=== PATIENT | female | born 1950 | race Caucasian/White ===

== ENCOUNTER 2018-10-04 17:56 | Observation (INO) ==
[2018-10-04] MEDS ORDERED: IOPAMIDOL 100 ML BOTTLE IV ONE (17:57)
--- NOTE | 2018-10-04 18:05 | Emergency Department Note ---
Neuro HPI - General Chief Complaint: Neuro Symptoms/Deficit Stated Complaint: neuro symptoms Time Seen by Provider: 10/04/18 18:03 Source: patient Mode of arrival: ambulatory Limitations: no limitations - History of Present Illness HPI Narrative: This patient began to have numbness to left side of her body 1/2-hour ago and also fairly marked left leg weakness and difficulty walking. Has not noticed much arm weakness. No change in speech or mentation no headache. No history of previous stroke no history of cardiopulmonary disease. - Related Data Home Medications: Home Medications Medication Instructions Recorded Confirmed Acetaminophen [Shake That Ache] 500 mg PO BIDP PRN 10/04/18 10/05/18 Ibuprofen [I-Prin] 400 mg PO BIDP PRN 10/04/18 10/05/18 Allergies/Adverse Reactions: Allergies Allergy/AdvReac Type Severity Reaction Status Date / Time No Known Drug Allergies Allergy Verified 10/05/18 01:24 Review of Systems All systems ED: reviewed and negative except as stated. Past Medical History - Past Medical History Medical history: Reports: no medical history - Social History smoking status: Never smoker Physical Exam Limitations: no limitations General appearance: alert Head: atraumatic Eye: Present: normal appearance ENT: normal exam Neck: Present: normal inspection Chest: Present: normal inspection Respiratory: Present: normal lung sounds bilaterally Cardiovascular: Present: regular rate, normal rhythm, normal heart sounds Abdominal: Present: soft. Absent: distention, tenderness Neurological: Present: alert Cranial nerves: facial sensation (V): Abnormal Left, facial palsy (VII): Normal Motor strength - LUE: 4/5 Motor strength - RUE: 5/5 Motor strength - LLE: 3/5 Motor strength - RLE: 5/5 Psychiatric: Present: normal affect Skin: Present: warm, dry Course Vital Signs Temperature 97.7 F 10/04/18 17:57 Pulse Rate 101 H 10/04/18 17:57 Respiratory Rate 18 10/04/18 17:57 Blood Pressure 175/98 10/04/18 17:57 Pulse Oximetry (%) 94 10/04/18 17:57 Temperature 98.6 F 10/05/18 03:29 Pulse Rate 81 10/05/18 03:29 Respiratory Rate 16 10/05/18 03:29 Blood Pressure 113/64 10/05/18 03:29 Pulse Oximetry (%) 95 10/05/18 03:29 Neuro Symptoms/Deficit - MDM Narrative Medical decision making narrative: This patient was evaluated by the stroke neurologist from [place] and felt that TPA was not indicated as she was improving. Her blood sugar also was 454. We did CT the 80s of head and neck and they were unremarkable as well as a normal CT of the brain. Patient will be admitted to the hospital for further TIA workup with Dr. Mead. - Lab Data Lab results reviewed: Yes I reviewed the patient's lab results. Result diagrams: 10/04/18 18:20 10/05/18 03:50 Lab Results 10/04/18 10/04/18 10/04/18 Range/Units 18:19 18:19 18:20 WBC 7.2 (4.5-11.0) K/mcL RBC 5.02 (4.00-5.20) M/mcL Hgb 14.1 (12.0-15.0) g/dL Hct 42.2 (36.0-48.0) % POC Hct 43.0 (36.0-48.0) % MCV 84.1 (80.0-100.0) fL MCH 28.1 (26.0-34.0) pg MCHC 33.4 (31.0-36.0) g/dL RDW 14.3 (11.5-14.5) % Plt Count 251 (140-440) K/mcL MPV 9.8 (7.4-10.4) fL Gran % 75.4 (38.0-78.0) % Lymph % (Auto) 18.0 (15.5-49.0) % [place] % (Auto) 5.1 (1.0-12.0) % Eos % (Auto) 1.1 (0.0-7.0) % Baso % (Auto) 0.4 (0.0-2.0) % Gran # 5.4 (1.8-8.0) K/mcL Lymph # (Auto) 1.3 L (1.5-4.8) K/mcL [place] # (Auto) 0.4 (0.1-0.9) K/mcL Eos # (Auto) 0.1 (0.0-0.7) K/mcL Baso # (Auto) 0 (0.0-0.3) K/mcL POC PT (11.9-14.5) sec POC INR (0.9-1.2) APTT (20-37) sec POC Sodium 136 (133-145) mmol/L Sodium 133 (133-145) mmol/L POC Potassium 3.9 (3.3-5.1) mmol/L Potassium 3.9 (3.3-5.1) mmol/L POC Chloride 99 (96-108) mmol/L Chloride 98 (96-108) mmol/L Carbon Dioxide 22 (22-30) mmol/L POC Total CO2 23 (22-30) mmol/L Anion Gap 13.0 (8-16) POC BUN 16 (8-23) mg/dl BUN 15 (8-23) mg/dl Creatinine 1.5 H (0.6-1.1) mg/dl POC Creatinine 1.3 H (0.6-1.1) mg/dl GFR Calculation 36 Glucose 453 H* (70-105) mg/dL POC Glucose 454 H* (70-105) mg/dL Hemoglobin A1c 11.4 H (4.0-6.0) % HGB Estim Average Glucose 280 mg/dL Calcium 9.0 (8.6-10.4) mg/dl POC WB Ioniz Calcium 1.17 (1.16-1.32) mmol/L Total Bilirubin 0.4 (0.0-1.0) mg/dL AST 14 (0-37) U/l ALT 10 (0-40) U/l Alkaline Phosphatase 109 (39-117) U/L Troponin T (0-0.03) ng/ml Total Protein 7.5 (5.9-8.4) gm/dL Albumin 4.1 (3.2-5.2) gm/dL Globulin 3.4 (2.2-3.7) gm/dL Albumin/Globulin Ratio 1.2 (1.0-2.3) Urine Color Urine Appearance Urine pH (5.0-9.0) Ur Specific [place] (1.000-1.035) Urine Protein (NEG) mg/dL Urine Glucose (UA) (NEG) mg/dL Urine Ketones (NEG) mg/dL Urine Occult Blood (<0.03) mg/dL Urine Nitrate (NEG) Urine Bilirubin (NEG) mg/dL Urine Urobilinogen (NEG) mg/dL Ur Leukocyte Esterase (NEG) /uL Urine RBC (0-1) /hpf Urine WBC (0-4) /hpf Ur Squamous Epith Cells (0-4) /hpf Urine Bacteria (0) /hpf Urine Mucus (0) /hpf Urine Yeast (Budding) (0) /hpf Ur Culture Indicated? 10/04/18 10/04/18 10/04/18 Range/Units 18:20 18:20 21:00 WBC (4.5-11.0) K/mcL RBC (4.00-5.20) M/mcL Hgb (12.0-15.0) g/dL Hct (36.0-48.0) % POC Hct (36.0-48.0) % MCV (80.0-100.0) fL MCH (26.0-34.0) pg MCHC (31.0-36.0) g/dL RDW (11.5-14.5) % Plt Count (140-440) K/mcL MPV (7.4-10.4) fL Gran % (38.0-78.0) % Lymph % (Auto) (15.5-49.0) % [place] % (Auto) (1.0-12.0) % Eos % (Auto) (0.0-7.0) % Baso % (Auto) (0.0-2.0) % Gran # (1.8-8.0) K/mcL Lymph # (Auto) (1.5-4.8) K/mcL [place] # (Auto) (0.1-0.9) K/mcL Eos # (Auto) (0.0-0.7) K/mcL Baso # (Auto) (0.0-0.3) K/mcL POC PT 11.6 L (11.9-14.5) sec POC INR 1.0 (0.9-1.2) APTT 30 (20-37) sec POC Sodium (133-145) mmol/L Sodium (133-145) mmol/L POC Potassium (3.3-5.1) mmol/L Potassium (3.3-5.1) mmol/L POC Chloride (96-108) mmol/L Chloride (96-108) mmol/L Carbon Dioxide (22-30) mmol/L POC Total CO2 (22-30) mmol/L Anion Gap (8-16) POC BUN (8-23) mg/dl BUN (8-23) mg/dl Creatinine (0.6-1.1) mg/dl POC Creatinine (0.6-1.1) mg/dl GFR Calculation Glucose (70-105) mg/dL POC Glucose (70-105) mg/dL Hemoglobin A1c (4.0-6.0) % HGB Estim Average Glucose mg/dL Calcium (8.6-10.4) mg/dl POC WB Ioniz Calcium (1.16-1.32) mmol/L Total Bilirubin (0.0-1.0) mg/dL AST (0-37) U/l ALT (0-40) U/l Alkaline Phosphatase (39-117) U/L Troponin T < 0.01 (0-0.03) ng/ml Total Protein (5.9-8.4) gm/dL Albumin (3.2-5.2) gm/dL Globulin (2.2-3.7) gm/dL Albumin/Globulin Ratio (1.0-2.3) Urine Color Yellow Urine Appearance Clear Urine pH 5.0 (5.0-9.0) Ur Specific [place] 1.036 H (1.000-1.035) Urine Protein Neg (NEG) mg/dL Urine Glucose (UA) >=500 A (NEG) mg/dL Urine Ketones Neg (NEG) mg/dL Urine Occult Blood 0.03 A (<0.03) mg/dL Urine Nitrate Pos A (NEG) Urine Bilirubin Neg (NEG) mg/dL Urine Urobilinogen Neg (NEG) mg/dL Ur Leukocyte Esterase 25 A (NEG) /uL Urine RBC 2 H (0-1) /hpf Urine WBC 15 H (0-4) /hpf Ur Squamous Epith Cells 1 (0-4) /hpf Urine Bacteria 0 (0) /hpf Urine Mucus Few (0) /hpf Urine Yeast (Budding) Few A (0) /hpf Ur Culture Indicated? Yes - Radiology Data Radiology results reviewed: Yes I reviewed the patient's radiology results. Disposition Pt seen by SENIOR SYSTEMS ANALYST/PA only: No Clinical Impression: Transient cerebral ischemia Disposition: Xfer As Inpt ([facility]) Condition: Good
--- NOTE | 2018-10-04 18:16 | Cat Scan Report ---
CLINICAL INFORMATION: Code stroke COMPARISON: None. TECHNIQUE: Axial noncontrast-enhanced images through the brain. FINDINGS: No acute intracranial hemorrhage. No focal intra-axial attenuation abnormality. No localized mass effect. No midline shift. Brain volume is normal for age. No hydrocephalus. Incidental note is made of calcification within both basal ganglia. This is probably physiologic. Brainstem and cerebellum are negative. No subarachnoid hemorrhage. No subdural hematoma. Basilar cisterns are normal. No hyperdense middle cerebral artery sign. No calvarial fracture. No lytic lesion. Temporal bones are negative. IMPRESSION: Negative noncontrast enhanced brain CT scan The exam was performed using radiation dose optimization techniques including, but not limited to, automated exposure control, adjustment of the mA and/or kV according to patient size and use of iterative reconstruction technique. Interpreted and Authenticated by: Bryce 10/04/18
[2018-10-04] MEDS ORDERED: INSULIN REGULAR, HUMAN 1 UNIT/0.01 ML UNIT IV ONE (18:37)
[2018-10-04] MEDS ORDERED: 0.9 % SODIUM CHLORIDE 1,000 ML IV ONE (19:02)
[2018-10-04 19:36] LABS: Basophils # (Auto) 0 K/mcL (0.0-0.3); Basophils % (Auto) 0.4 % (0.0-2.0); Eosinophils # (Auto) 0.1 K/mcL (0.0-0.7); Eosinophils % (Auto) 1.1 % (0.0-7.0); Granulocytes % (Auto) 75.4 % (38.0-78.0); Lymphocytes # (Auto) 1.3 K/mcL (1.5-4.8); Mean Cell Volume 84.1 fL (80.0-100.0); Mean Corpuscular HGB Conc 33.4 g/dL (31.0-36.0); Mean Corpuscular Hemoglobin 28.1 pg (26.0-34.0); Monocytes # (Auto) 0.4 K/mcL (0.1-0.9); Monocytes % (Auto) 5.1 % (1.0-12.0); Platelet Count 251 K/mcL (140-440); RBC 5.02 M/mcL (4.00-5.20); Red Cell Distribution Width 14.3 % (11.5-14.5)
--- NOTE | 2018-10-04 19:53 | Internal Med History&Physical ---
Medical - H&P: HPI Patient information: Note initiated : 10/04/18 at 7:46 pm Service Date, if different from initiated Date: [] Patient: Lisa Camarillo a 68 y/o F admitted on for neuro symptoms. Chief Complaint: [] History of present illness: Ms. aCmarillo is a 68 year old F who presents with Left side face arm and leg numbness as well as left leg weakness. She reports she was in the kitchen when she suddenly developed left facial numbness along with left arm and leg numbness she felt like she was weak on the left side as well and was unstable and had us sit down before she felt like she would fall. She first took some ibuprofen. Then eventually called EMS if symptoms do not improve. Brought to the ER. Symptoms lasted she says maybe 3 hours,at least 2 before resolving. She has never had any similar presentation. She is a diabetic diet controlled. She is not been on any medications for a year because she is been away from her primary care doctor for a year, she has been working in [place]. She was on metformin for diabetes and does not check her blood sugars. She is found to have blood glucose of 450 when she arrived. CTA head neck was unrevealing for infarct and showed no carotid artery stenosis. EKG with normal sinus rhythm No recent illnesses, no chest pain headaches, or speech disturbances. Telemetry stroke was initiated in the ED no TPA given. Review of Systems: Pertinent positives as above . denies headache/fever/chills/nausea/vomiting/ chest or abdominal pain/cough/dyspnea/diarrhea. Remaining 10 point review of systems reviewed negative Medical - H&P: PMH Medical history: Past medical history: Diabetes now diet controlled she has not taken metformin for years since she has been out of town for a year and has not seen her primary care doctor past surgical history: Tonsillectomy Family history: Mother had breast cancer and heart disease Father chronic kidney disease Social History Denies tobacco or alcohol lives at home with family Medical - H&P: Meds Home Medications Medication Instructions Recorded Confirmed Type No Known Home Meds 10/04/18 10/04/18 History Allergies Allergy/AdvReac Type Severity Reaction Status Date / Time No Known Drug Allergies Allergy Verified 10/04/18 18:01 Medical - H&P: Exam - Constitutional Vitals: Temp Pulse Resp BP Pulse Ox 97.7 F 85 20 145/95 96 12/19/18 17:57 10/04/18 19:35 10/04/18 19:35 10/04/18 19:01 10/04/18 19:35 Exam: General: Alert, Awake, No acute Distress Eyes/N/T: EOMI, PEERL, DMM Head/Neck: neck supple, normocephalic atraumatic CV: RRR, No murmurs, normal s1/s2 Pulm: Clear b/l, no wheezing/rhonchi/rales Abd: soft, nontender, +BS x4 Ext: no clubbing/cyanosis/edema Neuro: Alert, no focal deficits, moves all extremities, CN 2-12 grossly intact, guidance consultant strength appears to be symmetrical at this time and difficult to appreciate weakness in the left leg compared to the right. sensations intact b/ l upper/lower. Facial symmetry, no pronator drift, clear speech, Skin: warm/dry Medical - H&P: Reslt - Labs CBC & Chem 7: 10/04/18 18:20 10/04/18 18:19 Labs: Short CBC 10/04/18 Range/Units 18:20 WBC 7.2 (4.5-11.0) K/mcL Hgb 14.1 (12.0-15.0) g/dL Hct 42.2 (36.0-48.0) % Plt Count 251 (140-440) K/mcL - Impressions CTA head and neck unrevealing for acute infarct and carotid arteries bilaterally without stenosis EKG with normal sinus rhythm Medical - H&P: A/P - Narrative A/P Narrative: A: *TIA/ -ABCD=7 -CTA head/neck *Diabetes uncontrolled: 2/2 Medication noncompliance, used to take metformin and tries to adhere to ADA diet. *MANE vs CKD III(unknown baseline) * P: -Aspirin/statin -Allow permissive hypertension first 24 hours -Neuro checks every 4 -Lipid panel pending -Echo/MRI pending -SSI and basal -A1c -depending on renal fxn and a1c will determine whether she is sent home on metformin vs other oral hypoglycemic or insulin -ppx: Lovenox
[2018-10-04 20:01] LABS: ALT/SGPT 10 U/l (0-40); Albumin 4.1 gm/dL (3.2-5.2); Albumin/Globulin Ratio 1.2 (1.0-2.3); Alkaline Phosphatase 109 U/L (39-117); Blood Urea Nitrogen 15 mg/dl (8-23)
[2018-10-04 21:41] LABS: Appearance,Urine CLEAR; Bacteria,Urine 0 /hpf (0); Bilirubin,Urine NEG (NEG); Color,Urine YELLOW; Glucose,Urine (UA) >=500 mg/dL (NEG); Leukocyte Esterase,Urine 25 /uL (NEG); Mucus,Urine FEW /hpf (0); Protein,Urine NEG (NEG); Specific Gravity,Urine 1.036 (1.000-1.035); Urine Blood 0.03 mg/dL (<0.03); Urine Budding Yeast FEW /hpf (0); Urine RBC 2 /hpf (0-1); Urine Squamous Epithelial Cell 1 /hpf (0-4); Urine WBC 15 /hpf (0-4); Urobilinogen,Urine NEG (NEG)
[2018-10-04] MEDS: 0.9 % SODIUM CHLORIDE 10 ML SYRINGE IV SCH (21:45)
[2018-10-04] MEDS ORDERED: ASPIRIN 325 MG ENTERIC COATED TABLET PO STA (21:47)
[2018-10-04] MEDS ORDERED: BISACODYL 5 MG TABLET PO PRN (21:47)
[2018-10-04] MEDS ORDERED: ACETAMINOPHEN 325 MG TABLET PO PRN ×2 (21:47)
[2018-10-04] MEDS ORDERED: DEXTROSE 50% 50 ML VIAL IV PRN (21:47)
[2018-10-04] MEDS ORDERED: ONDANSETRON 4 MG/2 ML VIAL IV PRN (21:47)
[2018-10-04] MEDS ORDERED: HYDROcodone/APAP 5/325MG TABLET PO PRN (21:47)
[2018-10-04] MEDS ORDERED: DEXTROSE 31 GM ORAL.SUSP PO PRN (21:47)
[2018-10-04] MEDS ORDERED: 0.9 % SODIUM CHLORIDE 1,000 ML IV SCH (21:47)
[2018-10-04] MEDS: INSULIN LISPRO 1 UNIT/0.01 ML UNIT SQ SCH (22:38)
[2018-10-04] MEDS: DOCUSATE SODIUM 100 MG CAPSULE PO SCH (22:38)
[2018-10-04] MEDS: ATORVASTATIN 20 MG TABLET PO SCH (22:38)
[2018-10-04 23:38] LABS: Hemoglobin A1C 11.4 % HGB (4.0-6.0)
[2018-10-05] MEDS ORDERED: cefTRIAXone 1 GM VIAL ONE (02:57)
[2018-10-05] MEDS: cefTRIAXone 1 GM VIAL IV SCH ×2 (03:17→16:10)
--- NOTE | 2018-10-05 05:49 | Cat Scan Report ---
CLINICAL INFORMATION: Facial numbness TECHNIQUE: AML intravenous contrast material injected. Axial images through the brain during arterial phase. Sagittal and coronal reformatted MIP images COMPARISON: Noncontrast enhanced brain CT scan dated 10/04/2018 FINDINGS: Petrous, cavernous, supraclinoid segments of the internal carotid arteries are normal and bilaterally symmetric. There is no stenosis. There is minimal atherosclerotic disease within the cavernous segments of the internal carotid arteries. M1 segments of the middle cerebral arteries and A1 segments of the anterior cerebral arteries are negative. There is no stenosis. Intracranial vertebral arteries and basilar artery are negative. No basilar artery stenosis. T1 segments of posterior cerebral arteries are negative. No intracranial aneurysm. No arteriovenous malformation. There is no detectable branch occlusion. Dural sinuses are patent and normal No temporal bone fracture or destructive mass. There is sclerosis in the left mastoid sinuses consistent with chronic left mastoiditis Examination was initially reviewed by [facility] IMPRESSION: Negative CTA of the [place] Interpreted and Authenticated by: Bryce 10/05/18
[2018-10-05 05:51] LABS: ALT/SGPT 7 U/l (0-40); Albumin 3.3 gm/dL (3.2-5.2); Albumin/Globulin Ratio 1.3 (1.0-2.3); Alkaline Phosphatase 83 U/L (39-117); Bilirubin,Direct < 0.2 mg/dL (0.0-0.3); Blood Urea Nitrogen 15 mg/dl (8-23); Gamma Glutamyl Transpeptidase 17 U/L (5-36); HDL Cholesterol 25 mg/dl (>40); LDL Cholesterol,Calculated 58 mg/dl (SEE CHART); Uric Acid 3.7 mg/dL (2.5-8.0)
--- NOTE | 2018-10-05 05:56 | Cat Scan Report ---
CLINICAL INFORMATION: Facial numbness TECHNIQUE: AML intravenous contrast material injected. Axial images through the neck. Scans performed during arterial phase. MIP sagittal and coronal reformatted images COMPARISON: Brain CT scan dated 10/04/2018 FINDINGS: Aortic arch is negative. No stenosis or dissection. Origins of the left subclavian artery, left common carotid artery, innominate artery, right common carotid artery, right subclavian artery are negative. Origin of the right vertebral artery is normal without stenosis. The left vertebral artery arises directly from the aortic arch. There is no stenosis. Carotid bifurcations are normal. No luminal irregularity. No significant calcified or noncalcified plaque. No ulceration. No stenosis. Cervical portions of the internal carotid arteries are normal. No dissection. No stenosis. Cervical vertebral arteries are negative. There is an 8 mm right upper lobe noncalcified pulmonary parenchymal nodule, image 10/204. Routine noncontrast chest CT scan recommended to evaluate for other nodules and establish follow-up protocol Thyroid gland is enlarged and heterogeneous. There are probable thyroid nodules. Thyroid ultrasound may be helpful to evaluate for dominant nodule. There is no other soft tissue abnormality within the neck. No pathologic adenopathy. No solid or cystic mass. Cervical spine is negative. Others degenerative disc disease. No prevertebral soft tissue swelling Examination was initially interpreted by [facility] IMPRESSION: 1. Negative CTA of the neck 2. Incidental abnormalities as above. 8 mm right upper lobe pulmonary parenchymal nodule. Enlarged heterogeneous thyroid gland. Interpreted and Authenticated by: Bryce 10/05/18
[2018-10-05] MEDS: 0.9 % SODIUM CHLORIDE 10 ML SYRINGE IV SCH ×3 (05:57→21:35)
--- NOTE | 2018-10-05 06:59 | Internal Med Progress Note ---
Medical - PN: Subj Patient information: Note initiated : 10/05/18 at 6:53 am Service Date, if different from initiated Date: [] Patient: Lisa Camarillo a 68 y/o F admitted on 10/04/18 for neuro symptoms. Chief Complaint: [] Interval history: Ms. Camarillo is a 68 year old F who presents with Left side face arm and leg numbness as well as left leg weakness. She reports she was in the kitchen when she suddenly developed left facial numbness along with left arm and leg numbness she felt like she was weak on the left side as well and was unstable and had us sit down before she felt like she would fall. She first took some ibuprofen. Then eventually called EMS if symptoms do not improve. Brought to the ER. Symptoms lasted she says maybe 3 hours,at least 2 before resolving. She has never had any similar presentation. She is a diabetic diet controlled. She is not been on any medications for a year because she is been away from her primary care doctor for a year, she has been working in [place]. She was on metformin for diabetes and does not check her blood sugars. She is found to have blood glucose of 450 when she arrived. CTA head neck was unrevealing for infarct and showed no carotid artery stenosis. EKG with normal sinus rhythm No recent illnesses, no chest pain headaches, or speech disturbances. Telemetry stroke was initiated in the ED no TPA given. 10/05 Supple. Denies numbness or weakness this morning. No overnight events. Review of Systems: denies headache/fever/chills/nausea/vomiting/chest or abdominal pain/cough/ dyspnea/diarrhea. Otherwise see above. - Constitutional Vitals: Vital Signs Temp Pulse Resp BP Pulse Ox 98.6 F 81 16 113/64 95 10/05/18 03:29 10/05/18 03:29 10/05/18 03:29 10/05/18 03:29 10/05/18 03:29 Period Temp Pulse Resp BP Sys/Rose Pulse Ox Last 24 Hr 97.7 F-99.3 F 76-101 12-24 112-175/64-100 94-97 Intake and Output 10/04/18 10/05/18 10/05/18 21:59 05:59 13:59 Intake Total 1000 / 1000 440 / 440 Output Total 400 / 400 Balance 1000 / 1000 40 / 40 Weight 83.007 kg Intake & Output: Intake & Output 10/04/18 10/05/18 10/05/18 21:59 05:59 13:59 Intake Total 1000 / 1000 440 / 440 Output Total 400 / 400 Balance 1000 / 1000 40 / 40 Weight 83.007 kg Intake: IV 1000 / 1000 Sodium Chloride 0.9% 1,000 ml @ 1000 / 1000 Wide Open IV BOLUS ONE Rx#: [id number] Oral 440 / 440 Output: Void Amount 400 / 400 Other: # Voids 1 Exam: General: Alert, Awake, No acute Distress Eyes/N/T: EOMI, Head/Neck: neck supple, CV: RRR, No murmurs, normal s1/s2 Pulm: Clear b/l, no wheezing/rhonchi/rales Abd: soft, nontender, +BS x4 Ext: no clubbing/cyanosis/edema Neuro: Alert, strength appears to be symmetrical upper and lower facial symmetry, no pronator drift, clear speech, Skin: warm/dry Medical - PN: Obj Da - Labs CBC & Chem 7: 10/04/18 18:20 10/05/18 03:50 Labs: Abnormal Lab Results 10/05/18 10/04/18 10/04/18 03:50 21:00 18:20 Lymph # (Auto) POC PT 11.6 L Creatinine POC Creatinine Glucose 247 H POC Glucose Hemoglobin A1c Calcium 8.4 L Triglycerides 292 H HDL Cholesterol 25 L Ur Specific [place] 1.036 H Urine Glucose (UA) >=500 A Urine Occult Blood 0.03 A Urine Nitrate Pos A Ur Leukocyte Esterase 25 A Urine RBC 2 H Urine WBC 15 H Urine Yeast (Budding) Few A 10/04/18 10/04/18 10/04/18 18:20 18:19 18:19 Lymph # (Auto) 1.3 L POC PT Creatinine 1.5 H POC Creatinine 1.3 H Glucose 453 H* POC Glucose 454 H* Hemoglobin A1c 11.4 H Calcium Triglycerides HDL Cholesterol Ur Specific [place] Urine Glucose (UA) Urine Occult Blood Urine Nitrate Ur Leukocyte Esterase Urine RBC Urine WBC Urine Yeast (Budding) Meds: Medications Acetaminophen (Tylenol) 650 mg PO Q6HP PRN PRN Reason: PAIN/FEVER > 101 Hydrocodone Bitart/Acetaminophen (Mouthcard 5/325mg) 1 tab PO Q4HP PRN PRN Reason: PAIN LEVEL 3-6 Aspirin (Aspirin) 81 mg CHEWED DAILY [facility] Atorvastatin Calcium (Lipitor) 80 mg PO HS [facility] Last Admin: 10/04/18 22:38 Dose: 80 mg Bisacodyl (Dulcolax) 10 mg PO DAILYP PRN PRN Reason: Constipation Ceftriaxone Sodium (Rocephin) 1 gm IV Q24H [facility] Last Admin: 10/05/18 03:17 Dose: 1 gm Dextrose (Dextrose 50%) 0 ml IV UD PRN PRN Reason: Hypoglycemia Diagnostic Test (Pha) (Accu-Chek) 1 each FS ACHS [facility] Last Admin: 10/04/18 21:40 Dose: 1 each Docusate Sodium (Colace) 100 mg PO BID [facility] Last Admin: 10/04/18 22:38 Dose: 100 mg Enoxaparin Sodium (Lovenox) 40 mg SQ DAILY [facility] Glucose (Insta-Glucose) 15 gm PO PRN PRN PRN Reason: Hypoglycemia Sodium Chloride (Sodium Chloride 0.9%) 1,000 mls @ 100 mls/hr IV .Q10H [facility] Stop: 10/05/18 07:46 Last Admin: 10/05/18 03:17 Dose: 100 mls/hr Insulin Glargine (Lantus) 10 unit SQ DAILY [facility] Insulin Human Lispro (Humalog) 0 unit SQ ACHS [facility]; Protocol Last Admin: 10/04/18 22:38 Dose: 9 unit Ondansetron HCl (Zofran) 4 mg IV Q4HP PRN PRN Reason: Nausea And Vomiting Sodium Chloride (Saline Flush) 10 ml IV Q8 [facility] Last Admin: 10/05/18 05:57 Dose: Not Given Medical - PN: A/P - Time Spent With Patient Total time spent is greater than 50% in coordination of care (as documented) at patient's floor/unit and/or counseling patient: - Narrative A/P Narrative: A: *TIA vs CVA with left hemiparesthesia resolved and some left hemiparesis: -ABCD=7 -CTA head/neck unremarkable for acute path and no carotid stenosis *Diabetes uncontrolled: 2/2 Medication noncompliance, used to take metformin and tries to adhere to ADA diet. -A1c 11.4 *MANE vs CKD III(unknown baseline): resolved *UTI: P: -Aspirin/statin -Allow permissive hypertension first 24 hours -Neuro checks every 4 -Echo/MRI pending -SSI and basal insulin -home med clarify -restart metformin up d/c and ADA diet with education on d/c, may need insulin, f/u with PCP -Rocephin, pending UC -ppx: Lovenox Medical - PN: Qual - Stroke Onset of Symptoms Time: 16:30 - VTE Deep Vein Thrombosis/Pulmonary Embolism Present on Admission: No
[2018-10-05] MEDS ORDERED: metFORMIN 500 MG TABLET PO SCH (08:00)
[2018-10-05] MEDS ORDERED: INSULIN GLARGINE, HUMAN 1 UNIT/0.01 ML SQ SCH ×2 (09:00)
[2018-10-05] MEDS: ENOXAPARIN 40 MG/0.4 ML SYRINGE SQ SCH (09:15)
[2018-10-05] MEDS: DOCUSATE SODIUM 100 MG CAPSULE PO SCH ×2 (09:15→21:34)
[2018-10-05] MEDS: ASPIRIN 81 MG TAB.CHEW CHEWED SCH (09:16)
[2018-10-05] MEDS: INSULIN LISPRO 1 UNIT/0.01 ML UNIT SQ SCH ×4 (09:16→21:35)
--- NOTE | 2018-10-05 10:11 | Discharge Summary ---
Medical - DS: Prov Patient information: Note initiated : 10/05/18 at 10:09 am Service Date, if different from initiated Date: [] Patient: Lisa Camarillo 68 y/o F admitted on 10/04/18 for neuro symptoms. Chief Complaint: [] Date of admission: 10/04/18 21:32 Discharge date: 10/06/18 Primary care physician: PCP No Consults: 10/04/18 Consult to Physician [CONS] Stat Comment: Consulting Provider: Ravinder Mead Reason For Exam: Physician to Consult Medical - DS: Meds - Discharge Medications Prescriptions: Aspirin 81 mg CHEWED DAILY #30 tab.chew Atorvastatin [Lipitor] 20 mg PO HS #30 tablet Ciprofloxacin HCl [Cipro] 500 mg PO BID #10 tab Insulin Detemir [Levemir Flextouch] 15 unit SQ DAILY #1 insuln.pen Saxagliptin HCl [Onglyza] 5 mg PO DAILY #30 tab Active and Home Medications: Home Medications Acetaminophen [Shake That Ache] 500 mg PO BIDP PRN 10/04/18 [History Confirmed 10/05/18 Last Taken 10/04/18 20:00 1500] Ibuprofen [I-Prin] 400 mg PO BIDP PRN 10/04/18 [History Confirmed 10/05/18 Last Taken 10/04/18 18:30] Medical - DS: Hosp Hospital course: Ms. Camarillo is a 68 year old F who presents with Left side face arm and leg numbness as well as left leg weakness. She reports she was in the kitchen when she suddenly developed left facial numbness along with left arm and leg numbness she felt like she was weak on the left side as well and was unstable and had us sit down before she felt like she would fall. She first took some ibuprofen. Then eventually called EMS if symptoms do not improve. Brought to the ER. Symptoms lasted she says maybe 3 hours,at least 2 before resolving. She has never had any similar presentation. She is a diabetic diet controlled. She is not been on any medications for a year because she is been away from her primary care doctor for a year, she has been working in [place]. She was on metformin for diabetes and does not check her blood sugars. She is found to have blood glucose of 450 when she arrived. CTA head neck was unrevealing for infarct and showed no carotid artery stenosis. EKG with normal sinus rhythm No recent illnesses, no chest pain headaches, or speech disturbances. Telemetry stroke was initiated in the ED no TPA given. 10/05 Supple. Denies numbness or weakness this morning. No overnight events. 10/06 Doing well symptom-free and stable for discharge Discharge diagnosis: TIA, UTI, DM, MANE - Time Spent with Patient Total time spent providing and/or coordinating discharge services: Greater than 30 minutes Medical - DS: Exam - Constitutional Vitals: Vital Signs Temp Pulse Pulse Resp BP BP Pulse Ox 10/05/18 07:08 64 16 95 10/05/18 03:29 98.6 F 81 16 113/64 95 10/05/18 00:00 99.3 F H 82 12 141/78 95 10/04/18 21:32 97.7 F 76 16 137/80 95 10/04/18 20:01 89 17 95 10/04/18 19:35 85 20 96 10/04/18 19:01 92 H 16 145/95 96 10/04/18 18:56 82 17 95 10/04/18 18:46 83 24 H 145/95 95 10/04/18 18:41 89 23 H 157/89 97 10/04/18 18:31 82 15 112/100 96 10/04/18 17:57 97.7 F 101 H 18 175/98 94 Intake and Output 10/04/18 10/05/18 10/05/18 21:59 05:59 13:59 Intake Total 1000 / 1000 440 / 440 Output Total 400 / 400 Balance 1000 / 1000 40 / 40 Intake: IV 1000 / 1000 Sodium Chloride 0.9% 1,000 ml @ 1000 / 1000 Wide Open IV BOLUS ONE Rx#: [id number] Oral 440 / 440 Output: Void Amount 400 / 400 Other: # Voids 1 Weight 83.007 kg 83.007 kg Patient Weight 10/06/18 05:59 Weight 83.007 kg Medical - DS: Data Labs on day of discharge: Labs from last 24 hours 10/05/18 10/04/18 10/04/18 03:50 21:00 18:20 WBC RBC Hgb Hct POC Hct MCV MCH MCHC RDW Plt Count MPV Gran % Lymph % (Auto) [place] % (Auto) Eos % (Auto) Baso % (Auto) Gran # Lymph # (Auto) [place] # (Auto) Eos # (Auto) Baso # (Auto) POC PT POC INR APTT POC Sodium Sodium 137 POC Potassium Potassium 3.7 POC Chloride Chloride 103 Carbon Dioxide 24 POC Total CO2 Anion Gap 10.0 POC BUN BUN 15 Creatinine 1.0 POC Creatinine GFR Calculation 58 Glucose 247 H POC Glucose Hemoglobin A1c Estim Average Glucose Uric Acid 3.7 Calcium 8.4 L POC WB Ioniz Calcium Phosphorus 4.0 Magnesium 1.7 Total Bilirubin 0.2 Direct Bilirubin < 0.2 GGT 17 AST 10 ALT 7 Alkaline Phosphatase 83 Lactate Dehydrogenase 145 Troponin T < 0.01 Total Protein 5.9 Albumin 3.3 Globulin 2.6 Albumin/Globulin Ratio 1.3 Triglycerides 292 H Cholesterol 141 LDL Cholesterol, Calc 58 Non-HDL Cholesterol 116 HDL Cholesterol 25 L Urine Color Yellow Urine Appearance Clear Urine pH 5.0 Ur Specific [place] 1.036 H Urine Protein Neg Urine Glucose (UA) >=500 A Urine Ketones Neg Urine Occult Blood 0.03 A Urine Nitrate Pos A Urine Bilirubin Neg Urine Urobilinogen Neg Ur Leukocyte Esterase 25 A Urine RBC 2 H Urine WBC 15 H Ur Squamous Epith Cells 1 Urine Bacteria 0 Urine Mucus Few Urine Yeast (Budding) Few A Ur Culture Indicated? Yes 10/04/18 10/04/18 10/04/18 18:20 18:20 18:19 WBC 7.2 RBC 5.02 Hgb 14.1 Hct 42.2 POC Hct MCV 84.1 MCH 28.1 MCHC 33.4 RDW 14.3 Plt Count 251 MPV 9.8 Gran % 75.4 Lymph % (Auto) 18.0 [place] % (Auto) 5.1 Eos % (Auto) 1.1 Baso % (Auto) 0.4 Gran # 5.4 Lymph # (Auto) 1.3 L [place] # (Auto) 0.4 Eos # (Auto) 0.1 Baso # (Auto) 0 POC PT 11.6 L POC INR 1.0 APTT 30 POC Sodium Sodium POC Potassium Potassium POC Chloride Chloride Carbon Dioxide POC Total CO2 Anion Gap POC BUN BUN Creatinine POC Creatinine GFR Calculation Glucose POC Glucose Hemoglobin A1c 11.4 H Estim Average Glucose 280 Uric Acid Calcium POC WB Ioniz Calcium Phosphorus Magnesium Total Bilirubin Direct Bilirubin GGT AST ALT Alkaline Phosphatase Lactate Dehydrogenase Troponin T Total Protein Albumin Globulin Albumin/Globulin Ratio Triglycerides Cholesterol LDL Cholesterol, Calc Non-HDL Cholesterol HDL Cholesterol Urine Color Urine Appearance Urine pH Ur Specific [place] Urine Protein Urine Glucose (UA) Urine Ketones Urine Occult Blood Urine Nitrate Urine Bilirubin Urine Urobilinogen Ur Leukocyte Esterase Urine RBC Urine WBC Ur Squamous Epith Cells Urine Bacteria Urine Mucus Urine Yeast (Budding) Ur Culture Indicated? 10/04/18 18:19 WBC RBC Hgb Hct POC Hct 43.0 MCV MCH MCHC RDW Plt Count MPV Gran % Lymph % (Auto) [place] % (Auto) Eos % (Auto) Baso % (Auto) Gran # Lymph # (Auto) [place] # (Auto) Eos # (Auto) Baso # (Auto) POC PT POC INR APTT POC Sodium 136 Sodium 133 POC Potassium 3.9 Potassium 3.9 POC Chloride 99 Chloride 98 Carbon Dioxide 22 POC Total CO2 23 Anion Gap 13.0 POC BUN 16 BUN 15 Creatinine 1.5 H POC Creatinine 1.3 H GFR Calculation 36 Glucose 453 H* POC Glucose 454 H* Hemoglobin A1c Estim Average Glucose Uric Acid Calcium 9.0 POC WB Ioniz Calcium 1.17 Phosphorus Magnesium Total Bilirubin 0.4 Direct Bilirubin GGT AST 14 ALT 10 Alkaline Phosphatase 109 Lactate Dehydrogenase Troponin T Total Protein 7.5 Albumin 4.1 Globulin 3.4 Albumin/Globulin Ratio 1.2 Triglycerides Cholesterol LDL Cholesterol, Calc Non-HDL Cholesterol HDL Cholesterol Urine Color Urine Appearance Urine pH Ur Specific [place] Urine Protein Urine Glucose (UA) Urine Ketones Urine Occult Blood Urine Nitrate Urine Bilirubin Urine Urobilinogen Ur Leukocyte Esterase Urine RBC Urine WBC Ur Squamous Epith Cells Urine Bacteria Urine Mucus Urine Yeast (Budding) Ur Culture Indicated? Preliminary micro results at discharge 10/04/18 21:00 Urine Culture - Preliminary Urine - Catheterized Gram negative bacillus Medical - DS: A/P - Patient/Caregiver Discharge Instructions Activity: increase activity as tolerated Diet: Consistent Carbohydrate Additional Instructions: Follow-up with [facility] in 3-7 days. Prescriptions: Aspirin 81 mg CHEWED DAILY #30 tab.chew Atorvastatin [Lipitor] 20 mg PO HS #30 tablet Ciprofloxacin HCl [Cipro] 500 mg PO BID #10 tab Insulin Detemir [Levemir Flextouch] 15 unit SQ DAILY #1 insuln.pen Saxagliptin HCl [Onglyza] 5 mg PO DAILY #30 tab - Follow up Plan Follow up with: Dennis Jenkins ARNP [Referring] - 10/16/18 3:00 pm (Please arrive at 2:45 pm) No,PCP [Referring] - Disposition: Home, Self-Care Prognosis: Good Rehab Potential: Fair Medical - DS: Qual - VTE Deep Vein Thrombosis/Pulmonary Embolism Present on Admission: No
--- NOTE | 2018-10-05 12:01 | Magnetic Resonance Report ---
CLINICAL INFORMATION: History of left-sided arm and leg weakness. This is resolved COMPARISON: Previous CT scan dated 10/04/2018 TECHNIQUE: Sagittal T1 FLAIR images. Axial DWI, T1 FLAIR, T2 FLAIR, T2, GRE. Coronal T2 FSE. FINDINGS: No restricted diffusion. No acute infarction. There is white matter abnormality with increased signal intensity in the white matter of both hemispheres. White matter abnormality is both subcortical and periventricular. Findings are most consistent with small vessel ischemic change. No well-defined focal abnormality. No localized mass effect. No midline shift. Brain volume is within normal limits. No hydrocephalus. Gradient echo images are negative. There is susceptibility within the globus pallidus bilaterally. Patient has calcification on CT scan. This is considered physiologic. Brainstem and cerebellum are negative. No extra-axial, intracranial abnormality. Normal flow voids in vessels at the base of the brain. Basilar cisterns are normal. There is mild inflammatory disease within the right maxillary sinus IMPRESSION: 1. Mild white matter abnormality as above. Findings are most consistent with small vessel ischemic change 2. No acute or focal infarction Interpreted and Authenticated by: Bryce 10/05/18
[2018-10-05] MEDS ORDERED: INSULIN GLARGINE, HUMAN 1 UNIT/0.01 ML SQ ONE (13:26)
[2018-10-05] MEDS: ATORVASTATIN 20 MG TABLET PO SCH (21:35)
[2018-10-06] MEDS: 0.9 % SODIUM CHLORIDE 10 ML SYRINGE IV SCH (05:41)
[2018-10-06] MEDS: ENOXAPARIN 40 MG/0.4 ML SYRINGE SQ SCH (08:08)
[2018-10-06] MEDS: DOCUSATE SODIUM 100 MG CAPSULE PO SCH (08:08)
[2018-10-06] MEDS: INSULIN LISPRO 1 UNIT/0.01 ML UNIT SQ SCH ×2 (08:08→11:52)
[2018-10-06] MEDS: ASPIRIN 81 MG TAB.CHEW CHEWED SCH (08:08)
[2018-10-06] MEDS ORDERED: INSULIN GLARGINE, HUMAN 1 UNIT/0.01 ML SQ SCH (09:00)
[2018-10-07] MEDS ORDERED: metFORMIN 500 MG TABLET PO SCH (08:00)
== END 2018-10-06 14:25 | disposition home or self-care (01) ==
LOC: ED 17:56 → ICU 17:56
PROVIDERS: ADMIT Internal Medicine; ATTEND Internal Medicine
CPT/HCPCS: 80047; 85014; 97161; 97167; 99217; 99219; 99224; G0378; G8996; G8997; G8998; J0696; J1650; J1815; J1817; J7030; Q9967

== ENCOUNTER 2019-03-26 14:41 | Inpatient (IN) ==
[2019-03-26] MEDS ORDERED: IOPAMIDOL 100 ML BOTTLE IV ONE (14:42)
[2019-03-26 15:25] LABS: Basophils # (Auto) 0 K/mcL (0.0-0.3); Basophils % (Auto) 0.4 % (0.0-2.0); Eosinophils # (Auto) 0.1 K/mcL (0.0-0.7); Eosinophils % (Auto) 0.8 % (0.0-7.0); Granulocytes % (Auto) 76.6 % (38.0-78.0); Hematocrit 34.1 % (36.0-48.0); Hemoglobin 11.1 g/dL (12.0-15.0); Lymphocytes # (Auto) 1.5 K/mcL (1.5-4.8); Lymphocytes % (Auto) 17.5 % (15.5-49.0); Mean Cell Volume 82.9 fL (80.0-100.0); Mean Corpuscular HGB Conc 32.4 g/dL (31.0-36.0); Mean Platelet Volume 8.6 fL (7.4-10.4); Monocytes # (Auto) 0.4 K/mcL (0.1-0.9); Monocytes % (Auto) 4.7 % (1.0-12.0); Platelet Count 272 K/mcL (140-440); RBC 4.12 M/mcL (4.00-5.20); Red Cell Distribution Width 15.7 % (11.5-14.5); WBC 8.7 K/mcL (4.5-11.0)
[2019-03-26 15:48] LABS: ALT/SGPT 13 U/l (0-40); AST/SGOT 13 U/l (0-37); Albumin 4.1 gm/dL (3.2-5.2); Albumin/Globulin Ratio 1.4 (1.0-2.3); Alkaline Phosphatase 67 U/L (39-117); Bilirubin,Total 0.8 mg/dL (0.0-1.0); Blood Urea Nitrogen 11 mg/dl (8-23); Calcium 8.9 mg/dl (8.6-10.4); Carbon Dioxide 21 mmol/L (22-30); Chloride 101 mmol/L (96-108); Glomerular Filtration Rate 66; Glucose 175 mg/dL (70-105); Potassium 4.2 mmol/L (3.3-5.1); Sodium 134 mmol/L (133-145)
[2019-03-26] MEDS ORDERED: ONDANSETRON 4 MG/2 ML VIAL IV ONE (16:10)
[2019-03-26 16:39] LABS: Appearance,Urine CLEAR; Bilirubin,Urine NEG (NEG); Color,Urine STRAW; Culture Indicated,Urine YES; Glucose,Urine (UA) NEGATIVE (NEG); Ketones,Urine NEG (NEG); Leukocyte Esterase,Urine NEG /uL (NEG); Nitrate,Urine NEG (NEG); Protein,Urine NEG (NEG); Specific Gravity,Urine 1.008 (1.000-1.035); Urine Blood NEG mg/dL (<0.03); Urine Budding Yeast FEW /hpf (0); Urine WBC < 1 /hpf (0-4); Urobilinogen,Urine NEG (NEG)
[2019-03-26] MEDS ORDERED: FUROSEMIDE 40 MG/4 ML VIAL IV ONE (16:47)
--- NOTE | 2019-03-26 17:31 | Cat Scan Report ---
CLINICAL INFORMATION: Shortness of breath and chest pain COMPARISON: None. TECHNIQUE: Enteric contrast was utilized. 80 cc of Isovue-300 were injected intravenously, and 50 seconds later 2.5 mm helical slices were obtained from the lung apices through the subtrochanteric regions of the femurs. Following reconstruction, 2.5 mm sagittal, coronal and axial reformatted images were processed and reviewed at multiple windows and levels. 7 mm MIP reconstructions were obtained through the lungs to optimize nodule detection.The exam was performed using radiation dose optimization techniques including, but not limited to, automated exposure control, adjustment of the mA and/or kV according to patient size and use of iterative reconstruction technique. FINDINGS: There is mild enlargement of the pulmonary vasculature and moderate interstitial edema - particularly the interlobular septa. Moderate bilateral pleural effusions results in subsegmental compressive atelectasis in the posterior lower lobes. No donna infiltrates. There is a small subpulmonic lymph node along the minor fissure. Mediastinal windows show a noncontrast thoracic aorta is normal in contour and caliber. The heart is moderately enlarged. There are a few mildly enlarged lymph nodes seen in the lower mediastinum - right paratracheal AP window and precarinal region ranging up to 12 mm. There are also only minimally benign reactive lymph nodes related to CHF. Esophagus is unremarkable. The thyroid is mildly enlarged and inhomogeneous compatible with multinodular adenoma - unchanged. Images through the abdomen show 11 mm simple cyst the right hepatic lobe. The remaining liver is normal. There is a cluster of three six cholesterol stones in the the gallbladder ranging up to 16 mm. The gallbladder and bile ducts are, otherwise, normal CBD is 5 mm. Both kidneys, adrenal glands, spleen, pancreas and aorta, including aortic branches, are normal. There is no free air, free fluid or adenopathy. Pelvic images show the urinary bladder is normal. There is massive (7.1 cm) moderately calcified subserosal fibroid arising from the right lower uterine segment. A second 1 cm fibroid is seen in some subserosal region of the anterior uterine segment. There is a multilobulated 6.3 cm soft tissue conglomerate adjacent to the right uterine cornua. It is unclear whether this is ovarian or uterine origin or below. Pectus subserosal fibroids. A 4 cm simple cyst seen in the left ovary. Left ovary is is enlarged - 6 cm. Bone windows show no osseous abnormality. IMPRESSION: 1. Moderate CHF featuring pulmonary vascular congestion, interstitial edema including the secondary interlobular septa and moderate bilateral pleural effusions. 2. Multiple uterine fibroids including a 7.1 massive partially calcified fibroid projecting from the lower uterine segment . There is a 6 cm multilobulated soft tissue nodule adjacent to right uterine cornu which suspect is a exophytic subserosal fibroid juxtapose to a right ovarian cyst. 4 cm simple cyst left ovary also noted with enlargement of the left ovary. Suggest: Pelvic ultrasound to better define all these regions. 3. Cholelithiasis 4. Multinodular adenomatous - thyroid goiter Interpreted and Authenticated by: Bryce Brizuela 03/26/19
[2019-03-26] MEDS ORDERED: FUROSEMIDE 20 MG/2 ML VIAL IV ONE (17:53)
--- NOTE | 2019-03-26 18:19 | Emergency Department Note ---
SOB HPI - General Chief Complaint: Shortness of Breath/Dyspnea Stated Complaint: SOB Time Seen by Provider: 03/26/19 16:47 Source: patient Mode of arrival: ambulatory Limitations: no limitations - History of Present Illness 68-year-old female presents with shortness of breath. Onset about 2 weeks ago but worse over the last week and progressively increasing. She presented to [facility] today. They did some labs and an x-ray but were concerned about her pedal edema, tachypnea, and shortness of breath so they sent her to the ER. She does have a nonproductive cough for the last week or so. Is unsure if she is had some chills last few nights. No fever. No nausea, vomiting, or diarrhea. No sore throat, ear pain, or congestion. Noticed her legs were swollen about a week ago. - Related Data Home Medications Medication Instructions Recorded Confirmed Alcohol Antiseptic Pads [Alcohol 1 each TP DAILY 10/05/18 10/05/18 Prep Pads] Gabapentin [Neurontin] 100 mg PO HS 10/05/18 10/05/18 Glucosamine Sulfate Dipot Chlr 1,000 mg PO BID 10/05/18 10/05/18 [Glucosamine] [place]-3/Dha/Epa/Fish Oil [Fish Oil 2,000 mg PO HS 10/05/18 10/05/18 1,000 mg Softgel] Pen Needle, Diabetic [Pen Needle] 1 each MC DAILY 10/05/18 10/05/18 Previous Rx's Medication Instructions Recorded Aspirin 81 mg CHEWED DAILY #30 tab.chew 10/05/18 Atorvastatin [Lipitor] 20 mg PO HS #30 tab 10/05/18 Ciprofloxacin HCl [Cipro] 500 mg PO BID #10 tab 10/05/18 Insulin Detemir [Levemir Flextouch] 15 unit SQ DAILY #1 insuln.pen 10/05/18 Saxagliptin HCl [Onglyza] 5 mg PO DAILY #30 tab 10/05/18 Allergies Allergy/AdvReac Type Severity Reaction Status Date / Time No Known Drug Allergies Allergy Verified 03/26/19 14:44 Review of Systems All systems ED: reviewed and negative except as stated. Past Medical History - Past Medical History Medical history: Reports: hypertension Surgical history ED: Reports: non-contributory - Social History smoking status: Never smoker Alcohol use: Reports: None Drug use: Reports: none Physical Exam Limitations: no limitations General appearance: alert, other (Moderate tachypnea with a rate in the mid 30s on arrival. Mild accessory use on arrival. Speaking 2-3 words at a time.) Head: atraumatic, normocephalic, normal inspection Eye: Present: normal appearance. Absent: conjunctival injection ENT: normal exam, normal oropharynx, mucous membranes moist, TM's normal bilaterally, normal external ear exam Neck: Present: normal inspection, trachea midline. Absent: tenderness, lymphadenopathy Chest: Present: symmetric chest wall rise Respiratory: Present: other (Diminished in the bases bilaterally). Absent: respiratory distress, rales/crackles, accessory muscle use Cardiovascular: Present: tachycardia (Tachycardic on arrival), other (Muffled) Extremities: Present: normal capillary refill, pedal edema (2+ pitting edema). Absent: calf tenderness Neurological: Present: alert, oriented X3 Psychiatric: Present: normal affect, normal mood Skin: Present: warm, dry, intact. Absent: rash, cyanosis, diaphoresis, erythema Course Course Narrative: @1910 I did speak with hospitalist Dr. Lawrence who agrees to accept this pt but would like us to get a troponin. Vital Signs Temperature 97.9 F 03/26/19 14:42 Pulse Rate 107 H 03/26/19 14:42 Respiratory Rate 18 03/26/19 14:42 Blood Pressure 142/82 03/26/19 14:42 Pulse Oximetry (%) 94 03/26/19 14:42 Temperature 97.9 F 03/26/19 14:42 Pulse Rate 102 H 03/26/19 19:00 Respiratory Rate 31 H 03/26/19 19:00 Blood Pressure 127/82 03/26/19 19:00 Pulse Oximetry (%) 87 L 03/26/19 19:00 Shortness of Breath/Dyspnea - Lab Data Lab results reviewed: Yes I reviewed the patient's lab results. Result diagrams: 03/26/19 15:03 03/26/19 15:02 Lab Results 03/26/19 03/26/19 03/26/19 Range/Units 15:02 15:03 15:45 WBC 8.7 (4.5-11.0) K/mcL RBC 4.12 (4.00-5.20) M/mcL Hgb 11.1 L (12.0-15.0) g/dL Hct 34.1 L (36.0-48.0) % MCV 82.9 (80.0-100.0) fL MCH 26.9 (26.0-34.0) pg MCHC 32.4 (31.0-36.0) g/dL RDW 15.7 H (11.5-14.5) % Plt Count 272 (140-440) K/mcL MPV 8.6 (7.4-10.4) fL Gran % 76.6 (38.0-78.0) % Lymph % (Auto) 17.5 (15.5-49.0) % [place] % (Auto) 4.7 (1.0-12.0) % Eos % (Auto) 0.8 (0.0-7.0) % Baso % (Auto) 0.4 (0.0-2.0) % Gran # 6.7 (1.8-8.0) K/mcL Lymph # (Auto) 1.5 (1.5-4.8) K/mcL [place] # (Auto) 0.4 (0.1-0.9) K/mcL Eos # (Auto) 0.1 (0.0-0.7) K/mcL Baso # (Auto) 0 (0.0-0.3) K/mcL Sodium 134 (133-145) mmol/L Potassium 4.2 (3.3-5.1) mmol/L Chloride 101 (96-108) mmol/L Carbon Dioxide 21 L (22-30) mmol/L Anion Gap 12.0 (8-16) BUN 11 (8-23) mg/dl Creatinine 0.9 (0.6-1.1) mg/dl GFR Calculation 66 Glucose 175 H (70-105) mg/dL Calcium 8.9 (8.6-10.4) mg/dl Total Bilirubin 0.8 (0.0-1.0) mg/dL AST 13 (0-37) U/l ALT 13 (0-40) U/l Alkaline Phosphatase 67 (39-117) U/L NT-Pro-B Natriuret Pep 3352.0 H (0-125) pg/ml Total Protein 7.1 (5.9-8.4) gm/dL Albumin 4.1 (3.2-5.2) gm/dL Globulin 3.0 (2.2-3.7) gm/dL Albumin/Globulin Ratio 1.4 (1.0-2.3) Urine Color Straw Urine Appearance Clear Urine pH 6.0 (5.0-9.0) Ur Specific [place] 1.008 (1.000-1.035) Urine Protein Neg (NEG) mg/dL Urine Glucose (UA) Negative (NEG) mg/dL Urine Ketones Neg (NEG) mg/dL Urine Occult Blood Neg (<0.03) mg/dL Urine Nitrate Neg (NEG) Urine Bilirubin Neg (NEG) mg/dL Urine Urobilinogen Neg (NEG) mg/dL Ur Leukocyte Esterase Neg (NEG) /uL Urine RBC 0 (0-1) /hpf Urine WBC < 1 (0-4) /hpf Ur Squamous Epith Cells 0 (0-4) /hpf Urine Bacteria 0 (0) /hpf Urine Yeast (Budding) Few A (0) /hpf Ur Culture Indicated? Yes - Radiology Data Radiology results reviewed: Yes I reviewed the patient's radiology results. Disposition Pt seen by [facility]WER/PA only: No Clinical Impression: CHF (congestive heart failure), Pedal edema, Tachypnea, Hypoxia Disposition: Xfer As Outpt/Obs ([facility]) Condition: Fair Referrals: Dennis Jenkins ARNP [Primary Care Provider] -
[2019-03-26 19:09] LABS: Bacteria,Urine 0 /hpf (0); Urine RBC 0 /hpf (0-1); Urine Squamous Epithelial Cell 0 /hpf (0-4)
--- NOTE | 2019-03-26 19:22 | Emergency Department Note ---
ED Note Addendum Note Addendum: agree with dx and rx for chf and need to admitt. Dr Lawrence consulted by Margarita.
[2019-03-26] MEDS ORDERED: DEXTROSE 50% 50 ML VIAL IV PRN (19:57)
[2019-03-26] MEDS ORDERED: ACETAMINOPHEN 1,000 MG/100 ML BOTTLE IV PRN (19:57)
[2019-03-26] MEDS ORDERED: ONDANSETRON 4 MG/2 ML VIAL IV PRN (19:57)
[2019-03-26] MEDS ORDERED: POTASSIUM CHLORIDE 20 MEQ PACKET PO PRN (19:57)
[2019-03-26] MEDS ORDERED: MAGNESIUM SULFATE 2 GM/50 ML BAG IV PRN (19:57)
[2019-03-26] MEDS ORDERED: DEXTROSE 31 GM ORAL.SUSP PO PRN (19:57)
[2019-03-26] MEDS: DOCUSATE SODIUM 100 MG CAPSULE PO SCH (20:53)
[2019-03-26] MEDS: SENNOSIDES/DOCUSATE SODIUM 1 TAB TABLET PO SCH (20:53)
[2019-03-26] MEDS: INSULIN LISPRO 1 UNIT/0.01 ML UNIT SQ SCH (20:53)
[2019-03-26] MEDS ORDERED: LISINOPRIL 5 MG TABLET PO SCH (21:00)
[2019-03-26] MEDS: FUROSEMIDE 40 MG/4 ML VIAL IV SCH (21:14)
[2019-03-26] MEDS: CYANOCOBALAMIN (VITAMIN B-12) 500 MCG TABLET PO SCH (21:14)
[2019-03-26] MEDS: 0.9 % SODIUM CHLORIDE 10 ML SYRINGE IV SCH (21:15)
[2019-03-26] MEDS: HEPARIN 5,000 UNIT/ML VIAL SQ SCH (21:15)
--- NOTE | 2019-03-26 21:33 | Internal Med History&Physical ---
Medical - H&P: [facility] Patient information: Note initiated : 03/26/19 at 9:31 pm Service Date, if different from initiated Date: [] Patient: Lisa Camarillo a 68 y/o F admitted on 03/26/19 for Shortness of breath. Chief Complaint: [] Chief complaint: shortness of breath History of present illness: Ms. Camarillo is a 68 year old F with a known history of systolic heart failure with EF 20-25% who presents to the ER with 7 days' onset of worsening shortness of breath, increasing weight gain, orthopnea and nonproductive cough. Over the last couple of days patient has not been able to function or sleep at night. With increasing concerns she presents to the ER along with the . Initial workup was consistent with congestive heart failure with pulmonary edema. Patient was started on diuretics. Subsequently hospitalist service is consulted At the time evaluation patient is alert oriented. She denies any active distress. She is already feeling better with diuretics. She is currently not on CHAVEZ inhibitor or beta saba. She is unaware of her heart failure but is due to follow-up. Cardiology in April. She follows up with [facility]. Patient endorses taking ibuprofen for joint pain but denies high salt diet. She denies lightheadedness dizziness, chest palpitations. Review of systems A 10 point review of systems was performed and is negative except for ones discussed above Medical - H&P: PMH Medical history: NYHA class III systolic heart failure with EF 25% as of echocardiogram September 2018 History of TIA Insulin-dependent diabetes Neuropathy Hyperlipidemia Degenerative joint disease Pertinent family history: Nonremarkable Social history[facility] Denies History of smoking or alcohol Medical - H&P: Meds Home Medications Medication Instructions Recorded Confirmed Type Alcohol Antiseptic Pads [Alcohol 1 each TP DAILY 10/05/18 10/05/18 History Prep Pads] Aspirin 81 mg CHEWED DAILY #30 tab.chew 10/05/18 Rx Atorvastatin [Lipitor] 20 mg PO HS #30 tab 10/05/18 Rx Ciprofloxacin HCl [Cipro] 500 mg PO BID #10 tab 10/05/18 Rx Gabapentin [Neurontin] 100 mg PO HS 10/05/18 10/05/18 History Glucosamine Sulfate Dipot Chlr 1,000 mg PO BID 10/05/18 10/05/18 History [Glucosamine] Insulin Detemir [Levemir Flextouch] 15 unit SQ DAILY #1 insuln.pen 10/05/18 Rx [place]-3/Dha/Epa/Fish Oil [Fish Oil 2,000 mg PO HS 10/05/18 10/05/18 History 1,000 mg Softgel] Pen Needle, Diabetic [Pen Needle] 1 each MC DAILY 10/05/18 10/05/18 History Saxagliptin HCl [Onglyza] 5 mg PO DAILY #30 tab 10/05/18 Rx Allergies Allergy/AdvReac Type Severity Reaction Status Date / Time No Known Drug Allergies Allergy Verified 03/26/19 14:44 Medical - H&P: Exam - Constitutional Vitals: Temp Pulse Resp BP Pulse Ox 97.9 F 100 H 22 116/79 91 03/26/19 19:51 03/26/19 19:51 03/26/19 19:51 03/26/19 20:02 03/26/19 19:51 General appearance: moderate distress, obese Exam: Short of breath and anxious Alert oriented oral cavity dry No eardischarge Head normocephalic Neck no lymphadenopathy S1 and S2 regular rhythm Diminished breath sounds bases with basilar crackles Abdomen soft nontender Lower extremity no cyanosis clubbing or joint swelling Mild lymphedema Skin no suspicious lesion Psych alert cooperative Neuro nonfocal Medical - H&P: Reslt - Labs CBC & Chem 7: 03/26/19 15:03 03/26/19 15:02 Labs: Short CBC 03/26/19 Range/Units 15:03 WBC 8.7 (4.5-11.0) K/mcL Hgb 11.1 L (12.0-15.0) g/dL Hct 34.1 L (36.0-48.0) % Plt Count 272 (140-440) K/mcL BMP 03/26/19 15:02 Sodium 134 Potassium 4.2 Chloride 101 Carbon Dioxide 21 L BUN 11 Creatinine 0.9 Glucose 175 H Calcium 8.9 Cardiac Enzymes 03/26/19 Range/Units 19:00 Troponin T < 0.01 (0-0.03) ng/ml Liver Function 03/26/19 Range/Units 15:02 Total Bilirubin 0.8 (0.0-1.0) mg/dL AST 13 (0-37) U/l ALT 13 (0-40) U/l Alkaline Phosphatase 67 (39-117) U/L Albumin 4.1 (3.2-5.2) gm/dL Urine 03/26/19 Range/Units 15:45 Urine Color Straw Urine Appearance Clear Urine pH 6.0 (5.0-9.0) Ur Specific [place] 1.008 (1.000-1.035) Urine Protein Neg (NEG) mg/dL Urine Glucose (UA) Negative (NEG) mg/dL Medical - H&P: A/P (1) Heart failure, systolic, with acute decompensation Current visit: Yes Status: Acute * Acute decompensated heart failure with EF 25%. Continue diuresis. Start beta saba/CHAVEZ inhibitor. Scheduled outpatient cardiology follow-up. Patient is a candidate for defibrillator in light of high risk for sudden cardiac . * Pulmonary edema continue diuresis * Hypoxic respiratory failure secondary to pulmonary edema clinically improving with diuresis. Continue supplemental oxygen * DM type continue basal prandial insulin * Hyperlipidemia continue statin * History of TIA continue aspirin and statin * Neuropathy continue gabapentin * Full code * Prophylaxis heparin Plan * Continue aggressive diuresis/CHF management, start CHAVEZ inhibitor beta saba * Supplemental oxygen * Nutrition support/PT OT * Pre-existing medical condition management as above * Inpatient admission light of hypoxic respiratory failure/decompensated heart failure Medical - H&P: Qual - VTE Deep Vein Thrombosis/Pulmonary Embolism Present on Admission: No
[2019-03-26] MEDS: ACETAMINOPHEN 325 MG TABLET PO PRN (21:35)
[2019-03-27] MEDS: FUROSEMIDE 40 MG/4 ML VIAL IV SCH ×2 (05:54→15:26)
[2019-03-27] MEDS: 0.9 % SODIUM CHLORIDE 10 ML SYRINGE IV SCH ×2 (05:54→15:26)
[2019-03-27 06:39] LABS: Hematocrit 31.4 % (36.0-48.0); Hemoglobin 10.3 g/dL (12.0-15.0); Mean Cell Volume 82.5 fL (80.0-100.0); Mean Corpuscular HGB Conc 32.7 g/dL (31.0-36.0); Mean Platelet Volume 8.5 fL (7.4-10.4); Platelet Count 264 K/mcL (140-440); Red Cell Distribution Width 15.3 % (11.5-14.5); WBC 8.2 K/mcL (4.5-11.0)
[2019-03-27 06:57] LABS: ALT/SGPT 12 U/l (0-40); AST/SGOT 14 U/l (0-37); Albumin 3.7 gm/dL (3.2-5.2); Albumin/Globulin Ratio 1.3 (1.0-2.3); Alkaline Phosphatase 61 U/L (39-117); Bilirubin,Direct < 0.2 mg/dL (0.0-0.3); Bilirubin,Total 0.7 mg/dL (0.0-1.0); Blood Urea Nitrogen 12 mg/dl (8-23); Calcium 8.9 mg/dl (8.6-10.4); Carbon Dioxide 26 mmol/L (22-30); Chloride 97 mmol/L (96-108); Globulin 2.8 gm/dL (2.2-3.7); Glomerular Filtration Rate 58; Glucose 86 mg/dL (70-105); Lactate Dehydrogenase 236 U/L (94-250); Phosphorous 4.3 mg/dL (2.7-4.5); Potassium 3.5 mmol/L (3.3-5.1); Sodium 137 mmol/L (133-145); Triglycerides 150 mg/dl (<150); Uric Acid 6.6 mg/dL (2.5-8.0)
[2019-03-27] MEDS: INSULIN LISPRO 1 UNIT/0.01 ML UNIT SQ SCH ×4 (07:19→21:01)
[2019-03-27 08:34] LABS: Band Neutrophils % 2 % (0-10); Eosinophils % (Manual) 3 % (0-7); Lymphocytes % 18 % (15-49); Monocytes % (Manual) 6 % (1-12); Platelet Estimate NORMAL (NORMAL); Polychromasia FEW (NONE SEEN); RBC Morphology ABNORM (NORMAL); Segmented Neutrophils % 71 % (38-78)
[2019-03-27] MEDS: FOLIC ACID 1 MG TABLET PO SCH (08:52)
[2019-03-27] MEDS: CYANOCOBALAMIN (VITAMIN B-12) 500 MCG TABLET PO SCH ×2 (08:52→20:55)
[2019-03-27] MEDS: METOPROLOL SUCCINATE 25 MG TAB.XL.24H PO SCH (08:52)
[2019-03-27] MEDS: DOCUSATE SODIUM 100 MG CAPSULE PO SCH ×2 (08:53→20:55)
[2019-03-27] MEDS: HEPARIN 5,000 UNIT/ML VIAL SQ SCH ×2 (08:53→20:59)
[2019-03-27] MEDS: sitaGLIPtin 100 MG TABLET PO SCH (08:53)
[2019-03-27] MEDS: THIAMINE 100 MG TABLET PO SCH (08:53)
--- NOTE | 2019-03-27 10:03 | Internal Med Progress Note ---
Medical - PN: Subj Patient information: Note initiated : 03/27/19 at 10:00 am Service Date, if different from initiated Date: [] Patient: Lisa Camarillo a 69 y/o F admitted on 03/26/19 for Shortness of breath. Chief Complaint: [] Interval history: Ms. Camarillo is a 68 year old F with a known history of systolic heart failure with EF 20-25% who presents to the ER with 7 days' onset of worsening shortness of breath, increasing weight gain, orthopnea and nonproductive cough. Over the last couple of days patient has not been able to function or sleep at night. With increasing concerns she presents to the ER along with the . Initial workup was consistent with congestive heart failure with pulmonary edema. Patient was started on diuretics. Subsequently hospitalist service is consulted At the time evaluation patient is alert oriented. She denies any active distress. She is already feeling better with diuretics. She is currently not on CHAVEZ inhibitor or beta saba. She is unaware of her heart failure but is due to follow-up. Cardiology in April. She follows up with [facility]. Patient endorses taking ibuprofen for joint pain but denies high salt diet. She denies lightheadedness dizziness, chest palpitations. 03/27-patient doing remarkably better. Status post 2 2000 cc net negative fluid balance. Able to talk in full sentences. Now on 1 L oxygen. Continue to diuresis. Started on extended release beta-saba/CHAVEZ inhibitor. Aggressively counseled on daily weight monitoring and diuretic use. Complains of intermittent cramps. Under direct replacement. Anticipate discharge in 24 hours with outpatient cardiology follow-up. Patient will be high risk sudden cardiac in light of dilated cardiomyopathy and risk of ventricular arrhythmia. She will be a candidate for defibrillator. - Constitutional Vitals: Vital Signs Temp Pulse Resp BP Pulse Ox 97.4 F 67 18 107/72 95 03/27/19 07:54 03/27/19 07:54 03/27/19 07:54 03/27/19 07:54 03/27/19 07:59 Period Temp Pulse Resp BP Sys/Rose Pulse Ox Last 24 Hr 97.4 F-98.4 F 67-110 18-34 107-151/70-111 86-99 Intake and Output 03/26/19 03/27/19 03/27/19 21:59 05:59 13:59 Intake Total 867 Output Total 1050 1675 1200 Balance -1075 -1513 -333 Weight 204 lb Intake & Output: Intake & Output 03/26/19 03/27/19 03/27/19 21:59 05:59 13:59 Intake Total 867 Output Total 1050 1675 1200 Balance -0724 -8455 -333 Weight 204 lb Intake: Oral 867 Output: Void Amount 1050 1675 1200 Other: Percent of Meal Consumed 100% Urine Appearance Clear Clear Urine Color Pale Pale General appearance: no acute distress Exam: Alert oriented nonlabored breathing No anxiety Diminished breath sounds bases but crackles resolved Lymphedema resolved Medical - PN: Obj Da - Labs CBC & Chem 7: 03/27/19 03:35 03/27/19 03:35 Labs: Abnormal Lab Results 03/27/19 03/26/19 03/26/19 03:35 15:45 15:03 RBC 3.80 L Hgb 10.3 L 11.1 L Hct 31.4 L 34.1 L RDW 15.3 H 15.7 H RBC Morphology Abnorm A Polychromasia Few A Carbon Dioxide Glucose NT-Pro-B Natriuret Pep Urine Yeast (Budding) Few A 03/26/19 15:02 RBC Hgb Hct RDW RBC Morphology Polychromasia Carbon Dioxide 21 L Glucose 175 H NT-Pro-B Natriuret Pep 3352.0 H Urine Yeast (Budding) Meds: Medications Acetaminophen (Tylenol) 650 mg PO Q4-6HP PRN PRN Reason: PAIN/FEVER > 101 Last Admin: 03/26/19 21:35 Dose: 650 mg Documented by: Cyanocobalamin (Vitamin B-12) 1,000 mcg PO BID [facility] Stop: 03/31/19 09:01 Last Admin: 03/27/19 08:52 Dose: 1,000 mcg Documented by: Dextrose (Dextrose 50%) 0 ml IV UD PRN PRN Reason: Hypoglycemia Diagnostic Test (Pha) (Accu-Chek) 1 each FS ACHS [facility] Last Admin: 03/27/19 07:19 Dose: 1 each Documented by: Docusate Sodium (Colace) 100 mg PO BID [facility] Last Admin: 03/27/19 08:53 Dose: Not Given Documented by: Folic Acid (Folic Acid) 1 mg PO DAILY [facility] Last Admin: 03/27/19 08:52 Dose: 1 mg Documented by: Furosemide (Lasix) 20 mg IV BIDD [facility] Glucose (Insta-Glucose) 15 gm PO PRN PRN PRN Reason: Hypoglycemia Heparin Sodium (Porcine) (Heparin) 5,000 unit SQ Q12 [facility] Last Admin: 03/27/19 08:53 Dose: 5,000 unit Documented by: Magnesium Sulfate (Magnesium Sulfate) 2 gm in 50 mls @ 50 mls/hr IV UD PRN PRN Reason: MG = or < 1.7 Acetaminophen (Ofirmev) 1,000 mg in 100 mls @ 200 mls/hr IV Q6HP PRN PRN Reason: PAIN/FEVER > 101 Insulin Human Lispro (Humalog) 0 unit SQ ACHS [facility]; Protocol Last Admin: 03/27/19 07:19 Dose: Not Given Documented by: Lisinopril (Zestril) 2.5 mg PO HS [facility] Last Admin: 03/26/19 21:35 Dose: 2.5 mg Documented by: Metoprolol Succinate (Toprol Xl) 25 mg PO DAILY [facility] Last Admin: 03/27/19 08:52 Dose: 25 mg Documented by: Ondansetron HCl (Zofran) 4 mg IV Q4-6HP PRN PRN Reason: Nausea And Vomiting Potassium Chloride (Klor-Con) 40 meq PO DAILYP PRN PRN Reason: K+ < 3.5 Last Admin: 03/27/19 08:52 Dose: 40 meq Documented by: Senna/Docusate Sodium (Senna Plus Tablet) 1 tab PO HS [facility] Last Admin: 03/26/19 20:53 Dose: Not Given Documented by: Sitagliptin Phosphate (Januvia) 100 mg PO DAILY [facility] Last Admin: 03/27/19 08:53 Dose: 100 mg Documented by: Sodium Chloride (Saline Flush) 10 ml IV Q8 [facility] Last Admin: 03/27/19 05:54 Dose: 10 ml Documented by: Thiamine HCl (Vitamin B1) 100 mg PO DAILY [facility] Last Admin: 03/27/19 08:53 Dose: 100 mg Documented by: Medical - PN: A/P - Time Spent With Patient Total time spent is greater than 50% in coordination of care (as documented) at patient's floor/unit and/or counseling patient: 25 - 35 minutes (1) Heart failure, systolic, with acute decompensation Status: Acute Assessment and plan: * Acute decompensated heart failure with EF 25%. C clinical improvement noted on diuresis. Continue histamine/beta-saba. Recommend outpatient cardiology follow-up for better optimization of CHF management and evaluation for defibrillator. High risk sudden cardiac . * Pulmonary edema -clinical improvement noted with ongoing diuresis * Hypoxic respiratory failure secondary to pulmonary edema clinically improving with diuresis. * DM type continue basal prandial insulin * Hypokalemia continue replacement * Hyperlipidemia continue home dose statin * History of TIA continue aspirin and statin * Neuropathy continue gabapentin * Full code * Prophylaxis heparin Plan * Continue aggressive diuresis * CHAVEZ inhibitor/beta-saba * Scheduled outpatient cardiology follow-up * PT OT/nutrition support * Pre-existing medical condition management as above * Anticipate discharge in 24 hours with outpatient follow-up Current Visit: Yes Medical - PN: Qual - VTE Deep Vein Thrombosis/Pulmonary Embolism Present on Admission: No
[2019-03-27] MEDS: ACETAMINOPHEN 325 MG TABLET PO PRN ×2 (10:51→20:56)
[2019-03-27] MEDS ORDERED: CYCLOBENZAPRINE 10 MG TABLET PO PRN (19:54)
[2019-03-27] MEDS ORDERED: ERGOCALCIFEROL (VITAMIN D2) 50,000 UNIT CAPSULE PO SCH (20:00)
[2019-03-27] MEDS: SENNOSIDES/DOCUSATE SODIUM 1 TAB TABLET PO SCH (20:56)
[2019-03-27] MEDS ORDERED: ATORVASTATIN 20 MG TABLET PO SCH (21:00)
[2019-03-27] MEDS ORDERED: CETIRIZINE 10 MG TABLET PO SCH (21:00)
[2019-03-28] MEDS: 0.9 % SODIUM CHLORIDE 10 ML SYRINGE IV SCH ×2 (00:04→05:36)
[2019-03-28] MEDS ORDERED: NITROGLYCERIN 0.4 MG TAB.SUBL SL ONE (00:15)
[2019-03-28] MEDS ORDERED: ASPIRIN 81 MG TAB.CHEW CHEWED ONE (00:15)
[2019-03-28] MEDS: NITROGLYCERIN 0.4 MG TAB.SUBL SL PRN ×3 (00:20→01:21)
[2019-03-28] MEDS ORDERED: ASPIRIN 81 MG TAB.CHEW ONE (00:23)
[2019-03-28 01:22] LABS: Basophils # (Auto) 0.1 K/mcL (0.0-0.3); Basophils % (Auto) 0.8 % (0.0-2.0); Eosinophils # (Auto) 0.2 K/mcL (0.0-0.7); Granulocytes % (Auto) 67.2 % (38.0-78.0); Hematocrit 33.5 % (36.0-48.0); Hemoglobin 10.9 g/dL (12.0-15.0); Lymphocytes # (Auto) 1.7 K/mcL (1.5-4.8); Lymphocytes % (Auto) 22.2 % (15.5-49.0); Mean Cell Volume 82.7 fL (80.0-100.0); Mean Corpuscular HGB Conc 32.6 g/dL (31.0-36.0); Mean Platelet Volume 8.3 fL (7.4-10.4); Monocytes # (Auto) 0.5 K/mcL (0.1-0.9); Monocytes % (Auto) 6.8 % (1.0-12.0); Platelet Count 326 K/mcL (140-440); RBC 4.05 M/mcL (4.00-5.20); Red Cell Distribution Width 15.8 % (11.5-14.5); WBC 7.5 K/mcL (4.5-11.0)
[2019-03-28] MEDS ORDERED: NITROGLYCERIN 5 MG (0.2 MG/HR) PATCH TOPICAL ONE (01:29)
[2019-03-28 02:03] LABS: ALT/SGPT 12 U/l (0-40); AST/SGOT 15 U/l (0-37); Albumin 3.8 gm/dL (3.2-5.2); Albumin/Globulin Ratio 1.2 (1.0-2.3); Alkaline Phosphatase 64 U/L (39-117); Bilirubin,Total 0.8 mg/dL (0.0-1.0); Blood Urea Nitrogen 17 mg/dl (8-23); Calcium 8.6 mg/dl (8.6-10.4); Carbon Dioxide 25 mmol/L (22-30); Chloride 92 mmol/L (96-108); Globulin 3.1 gm/dL (2.2-3.7); Glomerular Filtration Rate 52; Glucose 142 mg/dL (70-105); Potassium 4.3 mmol/L (3.3-5.1); Sodium 132 mmol/L (133-145)
[2019-03-28] MEDS: ACETAMINOPHEN 325 MG TABLET PO PRN (03:58)
--- NOTE | 2019-03-28 04:33 | XRay Report ---
CLINICAL INFORMATION: Chest pian COMPARISON: 03/26/2019 FINDINGS: The heart is mildly enlarged - slightly decreased. Mediastinum is unremarkable. Pulmonary vessels are slightly distended. Interstitial edema has cleared from the exam two days prior. No effusions IMPRESSION: Mild CHF. Improving from x-ray two days ago Interpreted and Authenticated by: Bryce Brizuela 03/28/19
[2019-03-28] MEDS: INSULIN LISPRO 1 UNIT/0.01 ML UNIT SQ SCH (07:16)
[2019-03-28] MEDS ORDERED: LISINOPRIL 5 MG TABLET PO SCH (09:00)
[2019-03-28] MEDS ORDERED: ASPIRIN 81 MG TAB.CHEW CHEWED SCH (09:00)
[2019-03-28] MEDS: HEPARIN 5,000 UNIT/ML VIAL SQ SCH (09:28)
[2019-03-28] MEDS: CYANOCOBALAMIN (VITAMIN B-12) 500 MCG TABLET PO SCH (09:28)
[2019-03-28] MEDS: THIAMINE 100 MG TABLET PO SCH (09:29)
[2019-03-28] MEDS: METOPROLOL SUCCINATE 25 MG TAB.XL.24H PO SCH (09:29)
[2019-03-28] MEDS: sitaGLIPtin 100 MG TABLET PO SCH (09:29)
[2019-03-28] MEDS: DOCUSATE SODIUM 100 MG CAPSULE PO SCH (09:29)
[2019-03-28] MEDS: FOLIC ACID 1 MG TABLET PO SCH (09:29)
--- NOTE | 2019-03-28 09:45 | Discharge Summary ---
Medical - DS: Prov Patient information: Note initiated : 03/28/19 at 9:41 am Service Date, if different from initiated Date: [] Patient: Lisa Camarillo 69 y/o F admitted on 03/26/19 for Shortness of breath. Chief Complaint: [] Date of admission: 03/26/19 19:51 Discharge date: 03/28/19 Primary care physician: Dennis Jenkins Consults: 03/26/19 Consult to Physician [CONS] Stat Comment: Consulting Provider: Chris Bernardo Reason For Exam: Physician to Consult Medical - DS: Meds - Discharge Medications Prescriptions: Furosemide [Lasix] 20 mg PO Q48 #30 tab Metoprolol Succinate [Toprol Xl] 25 mg PO DAILY #30 tab.xl.24h Potassium Chloride 10 meq PO Q48 #30 capsule.er Active and Home Medications: Home Medications Alcohol Antiseptic Pads [Alcohol Prep Pads] 1 each TP DAILY 10/05/18 [History Confirmed 03/27/19 Last Taken 10/05/17] Aspirin 81 mg CHEWED DAILY #30 tab.chew 10/05/18 [Rx Confirmed 03/27/19 Last Taken Unknown] Atorvastatin [Lipitor] 20 mg PO HS #30 tab 10/05/18 [Rx Confirmed 03/27/19 Last Taken Unknown] Cetirizine [Zyrtec] 10 mg PO HS 03/27/19 [History Confirmed 03/27/19 Last Taken Unknown] Cyclobenzaprine [Flexeril] 10 mg PO HSP PRN 03/27/19 [History Confirmed 03/27/19 Last Taken Unknown] Ergocalciferol (Vitamin D2) [Vitamin D2] 50,000 unit PO WEEKLY 03/27/19 [History Confirmed 03/27/19 Last Taken Unknown] Lisinopril [Zestril] 5 mg PO QDAY 03/27/19 [History Confirmed 03/27/19 Last Taken Unknown] Furosemide [Lasix] 20 mg PO Q48 #30 tab 03/28/19 [Rx Last Taken Unknown] Metoprolol Succinate [Toprol Xl] 25 mg PO DAILY #30 tab.xl.24h 03/28/19 [Rx Last Taken Unknown] Potassium Chloride 10 meq PO Q48 #30 capsule.er 03/28/19 [Rx Last Taken Unknown] Medical - DS: Hosp Hospital course: Discharge diagnosis * Acute decompensated heart failure with EF 20-25%. Clinically resolved with diuresis. Currently well compensated. Continue CHAVEZ inhibitor/beta-saba. Recommend cardiology follow-up. Schedule outpatient stress test at [facility]. Continue CHAVEZ inhibitor/diuretic/beta-saba. Remains high risk sudden cardiac and will require defibrillator evaluation. * Pulmonary edema -cl clinically resolved with diuresis * Hypoxic respiratory failure secondary to pulmonary edema -clinically resolved currently on room air * DM type continue basal prandial insulin * Hypokalemia -resolved with replacement * Hyperlipidemia continue home dose statin * History of TIA continued on aspirin and statin * Neuropathy managed on gabapentin Brief hospital course Ms. Camarillo is a 68 year old F with a known history of systolic heart failure with EF 20-25% who presents to the ER with 7 days' onset of worsening shortness of breath, increasing weight gain, orthopnea and nonproductive cough. Over the last couple of days patient has not been able to function or sleep at night. With increasing concerns she presents to the ER along with the . Initial workup was consistent with congestive heart failure with pulmonary edema. Patient was started on diuretics. Subsequently hospitalist service is consulted At the time evaluation patient is alert oriented. She denies any active distress. She is already feeling better with diuretics. She is currently not on CHAVEZ inhibitor or beta saba. She is unaware of her heart failure but is due to follow-up. Cardiology in April. She follows up with [facility]. Patient endorses taking ibuprofen for joint pain but denies high salt diet. She denies lightheadedness dizziness, chest palpitations. 03/27-patient doing remarkably better. Status post 2 2000 cc net negative fluid balance. Able to talk in full sentences. Now on 1 L oxygen. Continue to diuresis. Started on extended release beta-saba/CHAVEZ inhibitor. Aggressively counseled on daily weight monitoring and diuretic use. Complains of intermittent cramps. Under direct replacement. Anticipate discharge in 24 hours with outpatient cardiology follow-up. Patient will be high risk sudden cardiac in light of dilated cardiomyopathy and risk of ventricular arrhythmia. She will be a candidate for defibrillator. 03/28-patient doing well. No overnight events Except for substernal chest pressure. Negative troponins/EKG. Symptoms abated by morning. Feeling at baseline requesting discharge. Family at bedside. Discussed discharge plan including follow-up with cardiology for evaluation of defibrillator/stress test. Patient wishes to follow-up with [facility] Dr. Cutler. In the interim we will schedule an appointment with Dr. Lemus in 1 week for management of NYHA class C systolic heart failure with EF 20%. Also schedule stress test in 3 days at [place]. Continue beta-saba/CHAVEZ inhibitor/diuretics as advised. Discharge diagnosis: . - Time Spent with Patient Total time spent providing and/or coordinating discharge services: Greater than 30 minutes Medical - DS: Exam - Constitutional Vitals: Vital Signs Temp Pulse Pulse Resp BP BP BP 03/28/19 07:52 93 H 03/28/19 07:13 97.0 F 84 17 111/67 03/28/19 04:01 97.6 F 87 15 117/79 03/28/19 03:01 72 18 91/60 03/28/19 02:31 73 17 94/61 03/28/19 02:16 71 19 86/59 03/28/19 02:01 80 22 102/75 03/28/19 01:46 75 18 104/72 03/28/19 01:31 77 13 115/71 03/28/19 01:16 75 18 103/79 03/28/19 01:01 86 21 113/80 03/28/19 00:46 74 19 110/69 03/28/19 00:45 83 10 L 110/69 03/28/19 00:38 78 14 107/73 03/28/19 00:33 13 107/73 03/28/19 00:23 115/77 03/28/19 00:15 88 20 117/83 03/28/19 00:07 97.8 F 16 122/84 03/27/19 20:24 03/27/19 20:23 98.1 F 89 16 112/68 03/27/19 15:55 98.2 F 89 18 121/81 03/27/19 12:00 98.8 F 81 16 114/72 Pulse Ox 03/28/19 07:52 94 03/28/19 07:13 96 03/28/19 04:01 100 03/28/19 03:01 92 03/28/19 02:31 96 03/28/19 02:16 93 03/28/19 02:01 98 03/28/19 01:46 97 03/28/19 01:31 98 03/28/19 01:16 98 03/28/19 01:01 99 03/28/19 00:46 91 03/28/19 00:45 93 03/28/19 00:38 94 03/28/19 00:33 94 03/28/19 00:23 95 03/28/19 00:15 94 03/28/19 00:07 98 03/27/19 20:24 93 03/27/19 20:23 93 03/27/19 15:55 95 03/27/19 12:00 96 Intake and Output 03/27/19 03/28/19 03/28/19 21:59 05:59 13:59 Intake Total 240 920 480 Output Total 350 1120 Balance -110 -200 480 Intake: Oral 240 920 480 Output: Void Amount 350 1120 Other: Meal Dinner Breakfast Percent of Meal Consumed 75% 75% Feeding Ability Independent Urine Appearance Clear Urine Color Straw # Voids 1 Weight 200 lb 8 oz Medical - DS: Data Labs on day of discharge: Labs from last 24 hours 03/28/19 03/28/19 03/28/19 05:55 00:15 00:15 WBC RBC Hgb Hct MCV MCH MCHC RDW Plt Count MPV Gran % Lymph % (Auto) [place] % (Auto) Eos % (Auto) Baso % (Auto) Gran # Lymph # (Auto) [place] # (Auto) Eos # (Auto) Baso # (Auto) APTT D-Dimer 1.11 H Sodium 132 L Potassium 4.3 Chloride 92 L Carbon Dioxide 25 Anion Gap 15.0 BUN 17 Creatinine 1.1 GFR Calculation 52 Glucose 142 H Calcium 8.6 Total Bilirubin 0.8 AST 15 ALT 12 Alkaline Phosphatase 64 Total Creatine Kinase CK-MB (CK-2) Myoglobin Troponin T < 0.01 Total Protein 6.9 Albumin 3.8 Globulin 3.1 Albumin/Globulin Ratio 1.2 Hold Red Top Not Reportable 03/28/19 03/28/19 03/28/19 00:15 00:15 00:15 WBC 7.5 RBC 4.05 Hgb 10.9 L Hct 33.5 L MCV 82.7 MCH 27.0 MCHC 32.6 RDW 15.8 H Plt Count 326 MPV 8.3 Gran % 67.2 Lymph % (Auto) 22.2 [place] % (Auto) 6.8 Eos % (Auto) 3.0 Baso % (Auto) 0.8 Gran # 5.0 Lymph # (Auto) 1.7 [place] # (Auto) 0.5 Eos # (Auto) 0.2 Baso # (Auto) 0.1 APTT 33 D-Dimer Sodium Potassium Chloride Carbon Dioxide Anion Gap BUN Creatinine GFR Calculation Glucose Calcium Total Bilirubin AST ALT Alkaline Phosphatase Total Creatine Kinase 140 CK-MB (CK-2) 3.0 H Myoglobin Troponin T Total Protein Albumin Globulin Albumin/Globulin Ratio Hold Red Top 03/28/19 03/28/19 00:15 00:15 WBC RBC Hgb Hct MCV MCH MCHC RDW Plt Count MPV Gran % Lymph % (Auto) [place] % (Auto) Eos % (Auto) Baso % (Auto) Gran # Lymph # (Auto) [place] # (Auto) Eos # (Auto) Baso # (Auto) APTT D-Dimer Sodium Potassium Chloride Carbon Dioxide Anion Gap BUN Creatinine GFR Calculation Glucose Calcium Total Bilirubin AST ALT Alkaline Phosphatase Total Creatine Kinase CK-MB (CK-2) Myoglobin 72 H Troponin T < 0.01 Total Protein Albumin Globulin Albumin/Globulin Ratio Hold Red Top Medical - DS: A/P - Patient/Caregiver Discharge Instructions Activity: increase activity as tolerated Diet: Renal/Consistent Carbs Additional Instructions: Follow-up PCP in 5 days Follow-up cardiology Dr. Perea in 1 week Schedule nuclear stress test at [place]. Follow specific instructions prior to stress test appointment Continue aspirin/beta-saba/CHAVEZ inhibitor/Lasix and potassium as advised/ I recommend primary care physician to coordinate posthospitalization care including cardiology follow-up/defibrillator evaluation in light of NYHA class III systolic heart failure with EF 20% Continue aggressive bowel regimen to prevent constipation Continue fall precautions daily weights measurements and take additional 40 mg Lasix for 3 days if weight gain over 4 pounds over baseline or worsening shortness of breath and call primary care physician if inadequate response to Lasix Continue aggressive PT OT evaluation and treatment at [facility]. eval and treatment if indicated All meals on chair sitting upright at 90 degrees to prevent aspiration Return to ER if worsening fever chills shortness of breath, diarrhea, bleeding Review risk and side effect profile of medications including Lasix/beta-saba side effect may include mild to severe reaction including lightheadedness, dizziness, low blood pressure and even from. Arrhythmia which can be prevented by close follow-up with PCP and monitoring for side effects Refrain from smoking and alcohol Continue diet and activity as advised Discussed importance of medication adherence Please review medication list with patient prior to discharge Please schedule follow-up with PCP/Providers prior to discharge and provide printouts Prescriptions: Furosemide [Lasix] 20 mg PO Q48 #30 tab Metoprolol Succinate [Toprol Xl] 25 mg PO DAILY #30 tab.xl.24h Potassium Chloride 10 meq PO Q48 #30 capsule.er - Problem Maintenance (1) Heart failure, systolic, with acute decompensation Status: Acute - Follow up Plan Follow up with: Frankie Perea MD [Physician] - 04/04/19 8:00 am Josh Camacho DO [Referring] - 03/30/19 10:00 am Disposition: Home, Self-Care Prognosis: Fair Rehab Potential: Fair I certify that the patient requires SNF services: No Overall status at discharge: patient is progressing back to baseline Medical - DS: Qual - VTE Deep Vein Thrombosis/Pulmonary Embolism Present on Admission: No
[2019-03-28] MEDS: FUROSEMIDE 40 MG/4 ML VIAL IV SCH (11:22)
== END 2019-03-28 11:15 | disposition home or self-care (01) | DRG 291 ==
LOC: ED 14:41 → ICU 19:51
PROVIDERS: ADMIT Internal Medicine; ATTEND Internal Medicine